=== PATIENT | female | born 1950 | race Caucasian/White ===

== ENCOUNTER 2019-01-15 14:23 | Emergency (ER) | payer MEDICARE ==
[~2019-01-15] VITALS: Ht 172.7 cm; Wt 81.6 kg
[2019-01-15 14:29] VITALS: Ht 172.7 cm; Wt 81.6 kg
[2019-01-15 14:58] LABS: BASOPHIL % 0.6 % (0-2); PLATELET COUNT 332 x10^3mcL (130-400); RED CELL DISTRIBUTION WIDTH 13.6 % (11.5-14.5)
[2019-01-15 15:04] LABS: CALCIUM 9.4 mg/dL (8.5-10.1); CARBON DIOXIDE 15.3 mmol/L (21-32); CREATININE SERUM 1.3 mg/dL (0.6-1.0); POTASSIUM SERUM 3.4 mmol/L (3.5-5.1)
[2019-01-15 15:09] LABS: ALBUMIN 4.1 g/dL (3.4-5.0); BILIRUBIN TOTAL 0.84 mg/dL (0.20-1.00)
[2019-01-15 15:10] LABS: TOTAL PROTEIN, SERUM 8.3 g/dL (6.4-8.2)
[2019-01-15 16:15] VITALS: BP 116/73
[2019-01-15] MEDS ORDERED: DIGOXIN0.125 M1 PO (16:36)
[2019-01-15] MEDS ORDERED: CARVEDILOL25 M1 PO (16:36)
[2019-01-15] MEDS ORDERED: COUMADIN5 MG PO (16:36)
[2019-01-15] MEDS ORDERED: COZAAR100 MG PO (16:37)
[2019-01-15] MEDS ORDERED: HYDROCHLOROTHIA25 MG PO (16:37)
[2019-01-15] MEDS ORDERED: ATORVASTATIN CA40 M1 PO (16:38)
[2019-01-15] MEDS ORDERED: FEMARA2.5 MG PO (16:38)
[2019-01-15] MEDS ORDERED: NOR5 PO (16:38)
[2019-01-15 18:20] LABS: AMPHETAMINE QUAL UR NONE DETECTED (See below)
== END 2019-01-15 17:01 | disposition short-term general hospital (02) ==
LOC: ED 14:23
PROVIDERS: Emergency Medicine
DX: I61.9 Nontraumatic intracerebral hemorrhage, unspecified (principal); T45.515A Adverse effect of anticoagulants, initial encounter; G40.89 Other seizures; I48.91 Unspecified atrial fibrillation; Z79.01 Long term (current) use of anticoagulants; Y92.89 Other specified places as the place of occurrence of the external cause
CPT/HCPCS: J1100; J1953; J3430; J3490; J7030; J7050